=== PATIENT | female | born 1975 | race Caucasian/White ===

== ENCOUNTER 2017-01-17 16:15 | Emergency (ER) | payer MEDICARE, MEDICAID ==
[~2017-01-17] VITALS: Ht 167.6 cm; Wt 96.6 kg
[2017-01-17] MEDS ORDERED: GABA-283 PO (16:25)
[2017-01-17] MEDS ORDERED: BUPR10TASR PO (16:25)
[2017-01-17] MEDS ORDERED: NS 1,000 ML IV ONE (16:45)
[2017-01-17] MEDS ORDERED: MORPHINE 4 MG/ML 1ML SYRINGE IV PRN (16:45)
[2017-01-17] MEDS ORDERED: ONDANSETRON 4MG/2ML VIAL (J2405) IV ONE (16:45)
[2017-01-17 17:06] LABS: BASO % 0.3 % (0.0-1.0); EOS # 0.2 K/mm3 (0.0-0.50); EOS % 1.3 % (0.0-3.0); LARGE UNSTAINED CELL # 0.1 K/mm3 (0.0-0.4); LARGE UNSTAINED CELL % 0.5 % (0.0-4.0); LYMPH # 1.8 K/mm3 (1.5-4.5); LYMPH % 8.7 % (24.0-44.0); MEAN CORPUSCULAR HEMOGLOBIN 31.4 pg (27.0-33.0); MEAN CORPUSCULAR HGB CONC 34.5 g/dl (32.0-36.5); MEAN CORPUSCULAR VOLUME 91.2 fl (80.0-96.0); MONO # 0.7 K/mm3 (0.0-0.8); MONO % 3.6 % (0.0-5.0); NEUTROPHILS # 16.5 K/mm3 (1.8-7.7); NEUTROPHILS % 85.7 % (36.0-66.0); PLATELET COUNT, AUTOMATED 403 k/mm3 (150-450); RED CELL DISTRIBUTION WIDTH 13.3 % (11.5-14.5); WHITE BLOOD COUNT 19.2 K/mm3 (4.0-10.0)
[2017-01-17 17:15] LABS: INR 0.92
[2017-01-17 17:37] LABS: ALBUMIN 3.2 GM/DL (3.2-5.2); ALBUMIN/GLOBULIN RATIO 0.94 (1.00-1.93); ALKALINE PHOSPHATASE 100 U/L (45-117); ALT/SGPT 36 U/L (12-78); ANION GAP 9 MEQ/L (8-16); AST/SGOT 16 U/L (15-37); BILIRUBIN,DIRECT < 0.1 MG/DL (0.0-0.2); BILIRUBIN,TOTAL 0.2 MG/DL (0.2-1.0); BLOOD UREA NITROGEN 11 MG/DL (7-18); CALCIUM LEVEL 8.3 MG/DL (8.5-10.1); CARBON DIOXIDE LEVEL 23 MEQ/L (21-32); CHLORIDE LEVEL 104 MEQ/L (98-107); CREATININE FOR GFR 0.79 MG/DL (0.55-1.02); GLOMERULAR FILTRATION RATE > 60.0 (>58); GLUCOSE, FASTING 119 MG/DL (70-105); POTASSIUM SERUM 4.7 MEQ/L (3.5-5.1); SODIUM LEVEL 136 MEQ/L (136-145); TOTAL PROTEIN 6.6 GM/DL (6.4-8.2)
[2017-01-17] MEDS ORDERED: ISOVUE-370 76% 100ML VIAL (Q9967) As Ordered ONE (17:39)
[2017-01-17] MEDS ORDERED: KETOROLAC 30 MG/ML VIAL (J1885) IV ONE (18:45)
[2017-01-17] MEDS ORDERED: BUDE3CAP PO (19:04)
--- NOTE | 2017-01-17 19:16 | REP ---
CT ABDOMEN PELVIS WITH IV CONTRAST ONLY: 01/17/2017: Comparison: Abdominal x-rays 05/30/2015. Clinical history: Left lower quadrant abdominal pain. Prior hysterectomy. Renal stone disease. Technique: Scanning through the abdomen pelvis after a bolus of 100 mL Isovue-370. Coronal and sagittal reconstructions are provided. Bone windows also reviewed. CT abdomen: The lung bases are clear. Heart not enlarged and no pericardial thickening or effusion. No hiatal hernia. I see no hepatosplenomegaly, focal hepatic or splenic mass nor intrahepatic biliary dilatation. Clips from prior cholecystectomy are noted. Pancreas was unremarkable. Adrenal glands are normal. Kidneys show lobation without mass, cyst, stone or hydronephrosis. No perinephric fluid. Small bowel loops and colon in the abdomen proper were unremarkable. Appendix is seen and normal. Small bowel loops show no dilatation. The aorta is without aneurysm. No periaortic or mesenteric pathologic sized adenopathy. Lung window review shows no free air in the abdomen or pelvis. Sagittal reconstructions show vertebral body heights in the lumbar and lower thoracic spine intact without disc space narrowing. There is no spondylolysis or spondylolisthesis. Minimal hypertrophic facet changes lower lumbar spine. Visualized ribs are grossly intact. Abdominal aorta without aneurysm or dissection. CT Pelvis: The bony hips appeared symmetric with a bone island in the apophysis of the femoral head on each side. The acetabulum shows no sclerotic or destructive lesion. There is no subchondral cyst. Small peripheral spurs of the femoral heads are noted. The ischium, acetabuli and iliac bones without fracture, destructive lesion. SI joints and sacrum unremarkable. Bladder is nearly empty and no significant findings are possible. The uterus is not present and its vaginal cuff intact. Small bowel loops in the deep pelvis as well as the distal left colon and sigmoid show collapse and findings suggesting some proctosigmoiditis thickening of the bowel wall from the distal left colon through the rectosigmoid with some edema adjacent to a minimal degree. No ventral or inguinal hernia nor pathologic sized inguinal adenopathy . Impression: 1. 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 No definite signs of diverticulitis. 2. Small bowel loops grossly intact. 3. Liver, spleen, pancreas, adrenal glands, kidneys, otherwise intact and unremarkable. Gallbladder is absent. No ascites. No adenopathy. Signed by Russ Segura MD 01/17/2017 08:18 P
[2017-01-17 19:18] VITALS: BP 128/62
--- NOTE | 2017-01-18 08:50 | ED PDOC ---
Post-Departure Follow-Up radiology report faxed to Lydia Castellanos MD Jan 18, 2017 08:50
== END 2017-01-17 19:21 | disposition home or self-care (01) ==
LOC: M ED 17:37
DX: R19.7 Diarrhea, unspecified (principal); K63.89 Other specified diseases of intestine; Z86.19 Personal history of other infectious and parasitic diseases; K58.9 Irritable bowel syndrome, unspecified; F17.200 Nicotine dependence, unspecified, uncomplicated
CPT/HCPCS: 36415; 74177; 80048; 80076; 81001; 82270; 83605; 83690; 85025; 85610; 85730; 87507; 96374; 96375; 99283; J1885; J2405; Q9967

== ENCOUNTER → 2017-01-17 | Outpatient (REF) | payer MEDICARE, MEDICAID, OTHER ==
[~2017-01-17] MED LIST: BUDE3CAP PO; BUPR10TASR PO; GABA-283 PO
== END ==
LOC: M SFHCLERA 16:24
PROVIDERS: ATTEND Family Medicine
DX: R19.7 Diarrhea, unspecified (principal)

== ENCOUNTER → 2017-01-24 | Outpatient (REF) | payer MEDICARE, MEDICAID ==
[2017-01-24 17:44] LABS: BASO % 0.4 % (0.0-1.0); EOS # 0.2 K/mm3 (0.0-0.50); EOS % 1.8 % (0.0-3.0); LARGE UNSTAINED CELL # 0.1 K/mm3 (0.0-0.4); LARGE UNSTAINED CELL % 1.2 % (0.0-4.0); LYMPH % 28.5 % (24.0-44.0); MEAN CORPUSCULAR HEMOGLOBIN 32.1 pg (27.0-33.0); MEAN CORPUSCULAR HGB CONC 34.9 g/dl (32.0-36.5); MONO # 0.5 K/mm3 (0.0-0.8); MONO % 4.6 % (0.0-5.0); NEUTROPHILS # 6.7 K/mm3 (1.8-7.7); NEUTROPHILS % 63.5 % (36.0-66.0); PLATELET COUNT, AUTOMATED 339 k/mm3 (150-450); WHITE BLOOD COUNT 10.6 K/mm3 (4.0-10.0)
== END ==
LOC: M SFHCLERA 13:41
PROVIDERS: ATTEND Family Medicine
DX: K92.2 Gastrointestinal hemorrhage, unspecified (principal)

== ENCOUNTER → 2017-03-13 | Outpatient (REF) | payer MEDICARE ==
[2017-03-13 18:00] LABS: MEAN CORPUSCULAR HGB CONC 35.9 g/dl (32.0-36.5); RED CELL DISTRIBUTION WIDTH 13.5 % (11.5-14.5); WHITE BLOOD COUNT 11.6 K/mm3 (4.0-10.0)
== END ==
LOC: M SFHCLERA 15:02
PROVIDERS: ATTEND Family Medicine
DX: K51.911 Ulcerative colitis, unspecified with rectal bleeding (principal)

== ENCOUNTER → 2017-03-26 | Outpatient (REF) | payer MEDICARE ==
[2017-03-26 12:30] LABS: BASO % 0.3 % (0.0-1.0); EOS # 0.1 K/mm3 (0.0-0.50); EOS % 1.2 % (0.0-3.0); LARGE UNSTAINED CELL # 0.1 K/mm3 (0.0-0.4); LYMPH # 2.6 K/mm3 (1.5-4.5); LYMPH % 22.7 % (24.0-44.0); MEAN CORPUSCULAR VOLUME 91.3 fl (80.0-96.0); MONO # 0.5 K/mm3 (0.0-0.8); MONO % 4.5 % (0.0-5.0); NEUTROPHILS # 7.8 K/mm3 (1.8-7.7); NEUTROPHILS % 70.4 % (36.0-66.0); PLATELET COUNT, AUTOMATED 305 k/mm3 (150-450); RED CELL DISTRIBUTION WIDTH 13.2 % (11.5-14.5)
[2017-03-26 14:40] LABS: BLOOD UREA NITROGEN 10 MG/DL (7-18); CHLORIDE LEVEL 104 MEQ/L (98-107); CREATININE FOR GFR 0.73 MG/DL (0.55-1.02); GLOMERULAR FILTRATION RATE > 60.0 (>58); GLUCOSE, FASTING 86 MG/DL (70-105); POTASSIUM SERUM 4.3 MEQ/L (3.5-5.1); SODIUM LEVEL 138 MEQ/L (136-145)
[2017-03-26 14:41] LABS: ALBUMIN 3.4 GM/DL (3.2-5.2); ALKALINE PHOSPHATASE 78 U/L (45-117); ALT/SGPT 42 U/L (12-78); ANION GAP 9 MEQ/L (8-16); AST/SGOT 19 U/L (15-37); BILIRUBIN,TOTAL 0.3 MG/DL (0.2-1.0); CARBON DIOXIDE LEVEL 25 MEQ/L (21-32); TOTAL PROTEIN 6.5 GM/DL (6.4-8.2)
[2017-03-26 15:36] LABS: IMMUNOGLOBULIN G 883 MG/DL (681-1648); IMMUNOGLOBULIN M 108 MG/DL (40-230)
== END ==
LOC: M SFHCPLAZ 11:36
PROVIDERS: ATTEND Internal Medicine Infectious Disease
DX: A04.7 Enterocolitis due to Clostridium difficile (principal); Z72.0 Tobacco use; F34.1 Dysthymic disorder; K21.9 Gastro-esophageal reflux disease without esophagitis
CPT/HCPCS: 80053; 82784; 85025; 87899; G0463

== ENCOUNTER → 2017-07-03 | Outpatient (REF) | payer MEDICARE, MEDICAID ==
[~2017-07-03] MED LIST changes: +CHOL4POW PO; +GABA-282 PO; +LEXA1TAB PO; +NAPR500T3 PO
== END ==
LOC: M LAB REF 14:56
PROVIDERS: ATTEND Internal Medicine Gastroenterology
DX: R19.7 Diarrhea, unspecified (principal); A04.7 Enterocolitis due to Clostridium difficile

== ENCOUNTER → 2017-07-03 | Outpatient (REF) | payer MEDICARE, MEDICAID | LOC: M SFHCPLAZ 13:45 | PROVIDERS: ATTEND Internal Medicine Infectious Disease | DX: A04.7 Enterocolitis due to Clostridium difficile (principal) ==

== ENCOUNTER 2017-07-23 13:01 | Outpatient (CLI) | payer MEDICARE, MEDICAID ==
[~2017-07-23] VITALS: Ht 170.2 cm; Wt 91.6 kg
[2017-07-23] MEDS ORDERED: NS 1,000 ML IV ONE (13:30)
[2017-07-23] MEDS ORDERED: PROPOFOL 200 MG/20 ML VIAL As Ordered ONE ×2 (14:33→14:34)
[2017-07-23] MEDS ORDERED: LIDOCAINE 2% INJ 100 MG/5 ML SDV (FOR ANES.) As Ordered ONE (14:34)
--- NOTE | 2017-07-23 14:39 | ROOR ---
Patient Name: Mercedes Vilchis Procedure Date: 07/23/2017 2:17 PM Date of : 1975 Age: 42 Room: [facility] Gender: Female Note Status: Finalized Procedure: Total Colonoscopy to Cecum + Ileoscopy + Bx. Indications: Clinically significant diarrhea of unexplained origin Providers: Jluis De La Rosa MD Referring MD: Shamar Ge Md Requesting Provider: Medicines: Monitored Anesthesia Care Complications: No immediate complications. Procedure: Pre-Anesthesia Assessment: - The heart rate, respiratory rate, oxygen saturations, blood pressure, adequacy of pulmonary ventilation, and response to care were monitored throughout the procedure. The Colonoscope was introduced through the anus and advanced to the terminal ileum. The colonoscopy was performed without difficulty. The patient tolerated the procedure well. The quality of the bowel preparation was good. Findings: The perianal and digital rectal examinations were normal. Non-bleeding internal hemorrhoids were found during retroflexion. The hemorrhoids were small and Grade I (internal hemorrhoids that do not prolapse). No other significant abnormalities were identified in a careful examination of the remainder of the colon. The terminal ileum appeared normal. Biopsies for histology were taken with a cold forceps from the ascending colon, transverse colon and descending colon for evaluation of microscopic colitis. The exam was otherwise without abnormality on direct and retroflexion views. Impression: - Non-bleeding internal hemorrhoids. - The examined portion of the ileum was normal. - The examination was otherwise normal on direct and retroflexion views. - Biopsies were taken with a cold forceps from the ascending colon, transverse colon and descending colon for evaluation of microscopic colitis. - The exam was otherwise normal to the cecum. Recommendation: - Patient has a contact number available for emergencies. The signs and symptoms of potential delayed complications were discussed with the patient. Return to normal activities tomorrow. Written discharge instructions were provided to the patient. - High fiber diet. - Discharge patient to home. - Continue present medications. - Await pathology results. - Telephone GI clinic for pathology results in 1 week. - Check Portal Online for Path Results.([email or web address]) - Repeat colonoscopy in 10 years for screening purposes. - Return to referring physician. - The findings and recommendations were discussed with the patient's family. Jluis De La Rosa MD Jluis De La Rosa MD 07/23/2017 2:39:06 PM This report has been signed electronically. Number of Addenda: 0 Note Initiated On: 07/23/2017 2:17 PM Estimated Blood Loss: Estimated blood loss: none.
[2017-07-23 15:24] VITALS: BP 123/72
== END 2017-07-23 15:22 | disposition home or self-care (01) ==
LOC: M OPP 13:01
PROVIDERS: ATTEND Internal Medicine Gastroenterology
DX: Z09 Encounter for follow-up examination after completed treatment for conditions other than malignant neoplasm (principal); R19.7 Diarrhea, unspecified; A04.71 Enterocolitis due to Clostridium difficile, recurrent; K64.0 First degree hemorrhoids; R23.3 Spontaneous ecchymoses; M54.5 Low back pain; G47.8 Other sleep disorders; F17.210 Nicotine dependence, cigarettes, uncomplicated; Z88.8 Allergy status to other drugs, medicaments and biological substances; Z79.899 Other long term (current) drug therapy

== ENCOUNTER 2017-09-14 08:00 | Observation (INO) | payer MEDICARE, MEDICAID ==
[~2017-09-14] VITALS: Ht 170.2 cm; Wt 94.5 kg
[2017-09-14] MEDS ORDERED: ZANA4TAB PO (08:24)
[2017-09-14] MEDS ORDERED: REME15TA2 PO (08:24)
[2017-09-14 08:25] LABS: BASO % 0.3 % (0.0-1.0); EOS % 0.1 % (0.0-3.0); IMMATURE GRANULOCYTE % 0.5 % (0-0); LYMPH # 1.9 10^3/uL (1.5-4.5); LYMPH % 12.8 % (24.0-44.0); MEAN CORPUSCULAR HEMOGLOBIN 32.1 pg (27.0-33.0); MEAN CORPUSCULAR HGB CONC 34.5 g/dl (32.0-36.5); MONO # 0.8 10^3/uL (0.0-0.8); MONO % 5.1 % (0.0-5.0); NEUTROPHILS # 12.1 10^3/uL (1.8-7.7); NEUTROPHILS % 81.2 % (36.0-66.0); PLATELET COUNT, AUTOMATED 327 10^3/uL (150-450); RED CELL DISTRIBUTION WIDTH 12.9 % (11.5-14.5); WHITE BLOOD COUNT 14.8 10^3/uL (4.0-10.0)
[2017-09-14 08:38] LABS: ALBUMIN 3.3 GM/DL (3.2-5.2); ALBUMIN/GLOBULIN RATIO 1.14 (1.00-1.93); ALKALINE PHOSPHATASE 83 U/L (45-117); ALT/SGPT 37 U/L (12-78); ANION GAP 8 MEQ/L (8-16); AST/SGOT 14 U/L (7-37); BILIRUBIN,DIRECT 0.1 MG/DL (0.0-0.2); BILIRUBIN,TOTAL 0.3 MG/DL (0.2-1.0); BLOOD UREA NITROGEN 5 MG/DL (7-18); CALCIUM LEVEL 8.8 MG/DL (8.5-10.1); CARBON DIOXIDE LEVEL 28 MEQ/L (21-32); CHLORIDE LEVEL 103 MEQ/L (98-107); CREATININE FOR GFR 0.84 MG/DL (0.55-1.02); GLOMERULAR FILTRATION RATE > 60.0 (>58); GLUCOSE, FASTING 167 MG/DL (70-105); SODIUM LEVEL 139 MEQ/L (136-145); TOTAL PROTEIN 6.2 GM/DL (6.4-8.2)
--- NOTE | 2017-09-14 08:57 | REP ---
Clinical: Drug overdose . Comparison: None . Findings: The mediastinum and cardiac silhouette are stable and within normal limits for portable technique. The lung beatty are clear without acute consolidation, effusion, or pneumothorax. Skeletal structures are intact. Impression: No acute cardiopulmonary process appreciated. Signed by Neeraj Aguirre MD 09/14/2017 08:49 A
[2017-09-14 09:33] LABS: METHADONE URINE NEGATIVE (NEGATIVE)
[2017-09-14] MEDS ORDERED: BUPR150T3 PO (10:01)
[2017-09-14] MEDS ORDERED: KETO2SH TOP (10:01)
--- NOTE | 2017-09-14 11:05 | HPEPDOC ---
General Date of Admission Sep 14, 2017 at 09:36 Chief Complaint The patient is a 42-year-old female admitted with a reason for visit of Drug Overdose. Source: Patient Exam Limitations: Intoxication Timing/Duration: 24 hours Severity: Moderate, Severe Associated Symptoms: Denies Symptoms History of Present Illness 42 yo female for intentional drug overdose. Patient is currently intoxicated and a poor historian. Her mentation waxes and wanes. During her more lucid periods she states she was very upset with her boyfriend. It is not clear what she medications were taken in overdose, although she states it was possibly Wellbutrin and Tizanidine. She denies any medical complaints during examination. Home Medications Scheduled Bupropion Hcl (Bupropion HCl Xl) 150 Mg Tab, 150 MG PO DAILY, (Reported) Escitalopram Oxalate (Lexapro) 10 Mg Tab, 10 MG PO DAILY, (Reported) Ketoconazole (Ketoconazole) 1 Dose/120 Ml Sham, 1 DOSE TOP QHS, (Reported) Scheduled PRN Tizanidine Hydrochloride (Zanaflex) 4 Mg Tab, 1 TAB PO QHSP PRN for MUSCLE SPASMS, (Reported) Allergies Coded Allergies: Unclassified Drugs (Verified Adverse Reaction, Intermediate, ALL ANTIBIOTICS CAUSE C DIFF, 07/18/17) Past Medical History Medical History History of C.Dif colitis, with recurrent colitis, s/p fecal transplant Tension headaches. Dysthymic disorder DDD, lumbosacral Insomnia Seasonal allergies Tendonitis, left shoulder Episcleritis, OU Cervicalgia IBS with diarrhea Ulcerative colitis Seborrheic dermatitis of the scalp Social History * Smoker: current smoker Alcohol: other Drugs: denies Review of Symptoms Constitutional: Denies: Chills, Fever, Malaise, Night Sweats, Weakness, Fatigue , Weight Loss, Lethargy, Other Eyes: Denies: Pain, Vision change, Conjunctivae inflammation, Eyelid inflammation, Redness, Other ENT: Denies: Head Aches, Ear Pain, Dysphagia, Sinus Congestion, Post Nasal Drip , Sore Throat, Epistaxis, Other Symptoms Skin: Denies: Rash, Lesions, Jaundice, Bruising, Itching, Dry, Breakdown, Nail Changes, Other Pulmonary: Denies: Dyspnea, Cough, Pleuritic Chest Pain, Other Symptoms Cardiovascular: Denies: Chest Pain, Palpitations, Orthopnea, Paroxysmal Noc. Dyspnea, Edema, Lt Headedness, Other Symptoms Gastrointestinal: Denies: Nausea, Vomiting, Abdominal Pain, Diarrhea, Constipation, Melena, Hematochezia, Other Symptoms Genitourinary: Denies: Dysuria, Frequency, Incontinence, Hematuria, Retention, Other Symptoms Hematologic: Denies: Bruising, Bleeding Excessively, Petecchia, Purpura, Enlarged Lymph Nodes, Other Hematologic Endocrine: Denies: Polydipsia, Polyphagia, Polyuria, Heat Intolerance, Cold Intolerance, Other Endocrine Sx Musculoskeletal: Denies: Neck Pain, Back Pain, Shoulder Pain, Arm Pain, Hand Pain, Leg Pain, Foot Pain, Joint Pain, Muscle Pain, Spasms, Other Symptoms Psych: Reports: Other Psych (States she feels 'high') Physical Examination General Exam: Positive: Cooperative, Negative: Alert, No Acute Distress Eye Exam: Positive: EOMI, Negative: Conjunctiva & lids normal, Sclera icteric ENT Exam: Positive: Atraumatic, Mucous membr. moist/pink, Tongue Midline Neck Exam: Positive: Supple Chest Exam: Positive: Clear to auscultation, Normal air movement Heart Exam: Positive: Rate Normal, Regular Rhythm, Normal S1, Normal S2 Telemetry: Positive: No significant arrhythmia Abdomen Exam: Positive: Normal bowel sounds, Soft, Negative: Tenderness Extremity Exam: Negative: Edema Skin Exam: Positive: Nl turgor and temperature Psych Exam: Positive: Oriented x 3 Vital Signs Vital Signs Date Time Temp Pulse Resp B/P (MAP) Pulse Ox O2 Delivery O2 Flow Rate FiO2 09/14/17 08:47 09/14/17 08:45 81 16 99 Room Air 09/14/17 08:20 97.8 Laboratory Data Labs 24H Laboratory Tests 2 09/14/17 08:11: Immature Granulocyte % (Auto) 0.5H, White Blood Count 14.8H, Red Blood Count 5.01, Hemoglobin 16.1H, Hematocrit 46.6, Mean Corpuscular Volume 93.0, Mean Corpuscular Hemoglobin 32.1, Mean Corpuscular Hemoglobin Concent 34.5, Red Cell Distribution Width 12.9, Platelet Count 327, Neutrophils (%) (Auto) 81.2H, Lymphocytes (%) (Auto) 12.8L, Monocytes (%) (Auto) 5.1H, Eosinophils (%) (Auto) 0.1, Basophils (%) (Auto) 0.3, Neutrophils # (Auto) 12.1H, Lymphocytes # (Auto) 1.9, Monocytes # (Auto) 0.8, Eosinophils # (Auto) 0.0, Basophils # (Auto) 0.0, Immature Granulocyte # (Auto) 0.1H, Nucleated Red Blood Cells % (auto) 0.0, Anion Gap 8, Glomerular Filtration Rate > 60.0, Calcium Level 8.8, Aspartate Amino Transf (AST/SGOT) 14, Alanine Aminotransferase (ALT/SGPT) 37, Alkaline Phosphatase 83, Total Bilirubin 0.3, Direct Bilirubin 0.1, Total Creatine Kinase 199H, Total Protein 6.2L, Albumin 3.3, Albumin/Globulin Ratio 1.14, Thyroid Stimulating Hormone (TSH) 3.170, Salicylates Level 2.1L, Acetaminophen Level < 2.0L, Ethyl Alcohol Level < 0.003 09/14/17 09:08: Urine Amphetamines Screen NEGATIVE, Urine Benzodiazepines Screen NEGATIVE, Urine Opiates Screen POSITIVEH, Urine Methadone Screen NEGATIVE, Urine Barbiturates Screen NEGATIVE, Urine Phencyclidine Screen NEGATIVE, Urine Cocaine Metabolite Screen NEGATIVE, Urine Cannabinoids Screen NEGATIVE CBC/BMP Laboratory Tests 09/14/17 08:11 Red Blood Count 5.01, Mean Corpuscular Volume 93.0, Mean Corpuscular Hemoglobin 32.1, Mean Corpuscular Hemoglobin Concent 34.5, Red Cell Distribution Width 12.9 , Neutrophils (%) (Auto) 81.2 H, Lymphocytes (%) (Auto) 12.8 L, Monocytes (%) ( Auto) 5.1 H, Eosinophils (%) (Auto) 0.1, Basophils (%) (Auto) 0.3, Neutrophils # (Auto) 12.1 H, Lymphocytes # (Auto) 1.9, Monocytes # (Auto) 0.8, Eosinophils # (Auto) 0.0, Basophils # (Auto) 0.0 Problems (1) Drug overdose Status: Acute Response to Treatment: Progressing Discussed With: Patient Problem Specific Plan: Monitor Clinically, Repeat Labs Problem Text: Intentional drug OD - suicide attempt. Monitor in ICU. IV fluids. Suicide precautions. Psych c/s when medically stable. Plan / VTE VTE Prophylaxis Ordered?: Yes Plan Plan Admit to ICU for observation. IV fluids. Repeat EKG in am. Neuro checks. Seizure precautions. Suicide precautions. IVF: Initiate Diet: Continue Current Activity: Continue Current Diagnostics: Repeat Labs in AM, Repeat EKG Anticipated Discharge: Psych ARGELIA ALFRED MD Sep 14, 2017 11:05
[2017-09-14] MEDS ORDERED: ENOXAPARIN 60 MG/0.6 ML SYR (J1650) As Ordered ONE (11:58)
[2017-09-14] MEDS: NS 1,000 ML IV SCH ×2 (13:42→21:15)
[2017-09-14] MEDS: ENOXAPARIN 40 MG/0.4 ML SYRINGE (J1650) SC SCH (13:42)
[2017-09-14 16:00] VITALS: BP 137/65
[2017-09-14 17:00] VITALS: BP 128/72
[2017-09-14 18:00] VITALS: BP 122/65
[2017-09-14 19:00] VITALS: BP 174/98
[2017-09-14 20:00] VITALS: BP 160/70
[2017-09-15] VITALS (7 sets, daily range): BP systolic 115–148; BP diastolic 58–78
[2017-09-15] MEDS ORDERED: ACETAMINOPHEN TAB 650MG DOSE (2X325MG) PO ONE (04:15)
[2017-09-15 05:11] LABS: BASO # 0.1 10^3/uL (0.0-0.2); BASO % 0.5 % (0.0-1.0); EOS # 0.1 10^3/uL (0.0-0.50); EOS % 1.2 % (0.0-3.0); IMMATURE GRANULOCYTE % 0.3 % (0-0); LYMPH # 4.4 10^3/uL (1.5-4.5); LYMPH % 39.5 % (24.0-44.0); MEAN CORPUSCULAR HEMOGLOBIN 32.1 pg (27.0-33.0); MEAN CORPUSCULAR HGB CONC 33.8 g/dl (32.0-36.5); MEAN CORPUSCULAR VOLUME 94.9 fl (80.0-96.0); MONO # 0.8 10^3/uL (0.0-0.8); MONO % 7.5 % (0.0-5.0); NEUTROPHILS # 5.6 10^3/uL (1.8-7.7); PLATELET COUNT, AUTOMATED 296 10^3/uL (150-450); RED CELL DISTRIBUTION WIDTH 13.3 % (11.5-14.5)
[2017-09-15 05:24] LABS: ALBUMIN 2.7 GM/DL (3.2-5.2); ALBUMIN/GLOBULIN RATIO 0.93 (1.00-1.93); ALKALINE PHOSPHATASE 70 U/L (45-117); ALT/SGPT 31 U/L (12-78); ANION GAP 8 MEQ/L (8-16); AST/SGOT 13 U/L (7-37); BILIRUBIN,TOTAL 0.3 MG/DL (0.2-1.0); BLOOD UREA NITROGEN 11 MG/DL (7-18); CALCIUM LEVEL 8.2 MG/DL (8.5-10.1); CARBON DIOXIDE LEVEL 25 MEQ/L (21-32); CHLORIDE LEVEL 110 MEQ/L (98-107); CREATININE FOR GFR 0.91 MG/DL (0.55-1.02); GLOMERULAR FILTRATION RATE > 60.0 (>58); GLUCOSE, FASTING 128 MG/DL (70-105); POTASSIUM SERUM 4.1 MEQ/L (3.5-5.1); SODIUM LEVEL 143 MEQ/L (136-145); TOTAL PROTEIN 5.6 GM/DL (6.4-8.2)
--- NOTE | 2017-09-15 07:18 | IPNPDOC ---
Subjective Date Seen The patient was seen on 09/15/17. Subjective Chief Complaint/HPI The patient is a 42-year-old female admitted with a reason for visit of Drug Overdose. General: Denies: ROS Unobtainable, Chills, Night Sweats, Fatigue, Malaise, Normal Appetite, Other Symptoms Constitutional: Denies: Chills, Fever, Malaise, Night Sweats, Weakness, Fatigue , Weight Loss, Lethargy, Other Eyes: Denies: Pain, Vision change, Conjunctivae inflammation, Eyelid inflammation, Redness, Other ENT: Denies: Head Aches, Ear Pain, Dysphagia, Sinus Congestion, Post Nasal Drip , Sore Throat, Epistaxis, Other Symptoms Skin: Denies: Rash, Lesions, Jaundice, Bruising, Itching, Dry, Breakdown, Nail Changes, Other Pulmonary: Denies: Dyspnea, Cough, Pleuritic Chest Pain, Other Symptoms Cardiovascular: Denies: Chest Pain, Palpitations, Orthopnea, Paroxysmal Noc. Dyspnea, Edema, Lt Headedness, Other Symptoms Gastrointestinal: Denies: Nausea, Vomiting, Abdominal Pain, Diarrhea, Constipation, Melena, Hematochezia, Other Symptoms Genitourinary: Denies: Dysuria, Frequency, Incontinence, Hematuria, Retention, Other Symptoms Hematologic: Denies: Bruising, Bleeding Excessively, Petecchia, Purpura, Enlarged Lymph Nodes, Other Hematologic Endocrine: Denies: Polydipsia, Polyphagia, Polyuria, Heat Intolerance, Cold Intolerance, Other Endocrine Sx Objective Physical Examination General Exam: Positive: Cooperative, No Acute Distress, Negative: Alert Eye Exam: Positive: PERRLA, Conjunctiva & lids normal, EOMI, Negative: Sclera icteric ENT Exam: Positive: Atraumatic, Mucous membr. moist/pink, Tongue Midline Neck Exam: Positive: Supple, Negative: JVD Chest Exam: Positive: Clear to auscultation, Normal air movement Heart Exam: Positive: Rate Normal, Regular Rhythm, Normal S1, Normal S2 Telemetry: Positive: No significant arrhythmia Abdomen Exam: Positive: Normal bowel sounds, Soft, Negative: Tenderness Extremity Exam: Negative: Edema Skin Exam: Positive: Nl turgor and temperature Psych Exam: Positive: Oriented x 3 Assessment /Plan Problems (1) Drug overdose Status: Acute Response to Treatment: Improving Discussed With: Patient Problem Specific Plan: Monitor Clinically, Repeat Labs Problem Text: Intentional drug OD - suicide attempt. Transfer to PCU. Will DC IV fluids Suicide precautions. Psych c/s when medically stable. (2) Fever Status: Acute Response to Treatment: Progressing Discussed With: Patient Problem Specific Plan: Monitor Clinically, Repeat Labs Problem Text: Will check blood cultures/urinalysis. No obvious source of infection. Plan/VTE VTE Prophylaxis Ordered?: Yes Plan IVF: Discontinue Diet: Continue Current Activity: Continue Current Diagnostics: Repeat Labs in AM, Obtain Cultures Anticipated Discharge: Psych Continue to monitor on PCU, if afebrile 24 hours will consult psych. VS, I&O, 24H, Taye Vital Signs/I&O Vital Signs Date Time Temp Pulse Resp B/P (MAP) Pulse Ox O2 Delivery O2 Flow Rate FiO2 09/15/17 04:00 99.3 86 20 138/69 (92) 97 Room Air Laboratory Data 24H LABS Laboratory Tests 2 09/14/17 08:11: Immature Granulocyte % (Auto) 0.5H, White Blood Count 14.8H, Red Blood Count 5.01, Hemoglobin 16.1H, Hematocrit 46.6, Mean Corpuscular Volume 93.0, Mean Corpuscular Hemoglobin 32.1, Mean Corpuscular Hemoglobin Concent 34.5, Red Cell Distribution Width 12.9, Platelet Count 327, Neutrophils (%) (Auto) 81.2H, Lymphocytes (%) (Auto) 12.8L, Monocytes (%) (Auto) 5.1H, Eosinophils (%) (Auto) 0.1, Basophils (%) (Auto) 0.3, Neutrophils # (Auto) 12.1H, Lymphocytes # (Auto) 1.9, Monocytes # (Auto) 0.8, Eosinophils # (Auto) 0.0, Basophils # (Auto) 0.0, Immature Granulocyte # (Auto) 0.1H, Nucleated Red Blood Cells % (auto) 0.0, Anion Gap 8, Glomerular Filtration Rate > 60.0, Calcium Level 8.8, Aspartate Amino Transf (AST/SGOT) 14, Alanine Aminotransferase (ALT/SGPT) 37, Alkaline Phosphatase 83, Total Bilirubin 0.3, Direct Bilirubin 0.1, Total Creatine Kinase 199H, Total Protein 6.2L, Albumin 3.3, Albumin/Globulin Ratio 1.14, Thyroid Stimulating Hormone (TSH) 3.170, Salicylates Level 2.1L, Acetaminophen Level < 2.0L, Ethyl Alcohol Level < 0.003 09/14/17 09:08: Urine Amphetamines Screen NEGATIVE, Urine Benzodiazepines Screen NEGATIVE, Urine Opiates Screen POSITIVEH, Urine Methadone Screen NEGATIVE, Urine Barbiturates Screen NEGATIVE, Urine Phencyclidine Screen NEGATIVE, Urine Cocaine Metabolite Screen NEGATIVE, Urine Cannabinoids Screen NEGATIVE 09/14/17 11:42: 09/15/17 04:41: Immature Granulocyte % (Auto) 0.3H, White Blood Count 11.0H, Red Blood Count 4.33, Hemoglobin 13.9#, Hematocrit 41.1, Mean Corpuscular Volume 94.9, Mean Corpuscular Hemoglobin 32.1, Mean Corpuscular Hemoglobin Concent 33.8, Red Cell Distribution Width 13.3, Platelet Count 296, Neutrophils (%) (Auto) 51.0, Lymphocytes (%) (Auto) 39.5, Monocytes (%) (Auto) 7.5H, Eosinophils (%) (Auto) 1.2, Basophils (%) (Auto) 0.5, Neutrophils # (Auto) 5.6, Lymphocytes # (Auto) 4.4, Monocytes # (Auto) 0.8, Eosinophils # (Auto) 0.1, Basophils # (Auto) 0.1, Immature Granulocyte # (Auto) 0.0, Nucleated Red Blood Cells % (auto) 0.0, Anion Gap 8, Glomerular Filtration Rate > 60.0, Calcium Level 8.2L, Aspartate Amino Transf (AST/SGOT) 13, Alanine Aminotransferase (ALT/SGPT) 31, Alkaline Phosphatase 70, Total Bilirubin 0.3, Total Protein 5.6L, Albumin 2.7L, Albumin/ Globulin Ratio 0.93L, Blood Urea Nitrogen 11#, Creatinine 0.91, Sodium Level 143 , Potassium Level 4.1, Chloride Level 110H, Carbon Dioxide Level 25 CBC/BMP Laboratory Tests 09/14/17 08:11 Red Blood Count 5.01, Mean Corpuscular Volume 93.0, Mean Corpuscular Hemoglobin 32.1, Mean Corpuscular Hemoglobin Concent 34.5, Red Cell Distribution Width 12.9 , Neutrophils (%) (Auto) 81.2 H, Lymphocytes (%) (Auto) 12.8 L, Monocytes (%) ( Auto) 5.1 H, Eosinophils (%) (Auto) 0.1, Basophils (%) (Auto) 0.3, Neutrophils # (Auto) 12.1 H, Lymphocytes # (Auto) 1.9, Monocytes # (Auto) 0.8, Eosinophils # (Auto) 0.0, Basophils # (Auto) 0.0 09/15/17 04:41 Red Blood Count 4.33, Mean Corpuscular Volume 94.9, Mean Corpuscular Hemoglobin 32.1, Mean Corpuscular Hemoglobin Concent 33.8, Red Cell Distribution Width 13.3 , Neutrophils (%) (Auto) 51.0, Lymphocytes (%) (Auto) 39.5, Monocytes (%) (Auto ) 7.5 H, Eosinophils (%) (Auto) 1.2, Basophils (%) (Auto) 0.5, Neutrophils # ( Auto) 5.6, Lymphocytes # (Auto) 4.4, Monocytes # (Auto) 0.8, Eosinophils # (Auto ) 0.1, Basophils # (Auto) 0.1, Calcium Level 8.2 L, Aspartate Amino Transf (AST/ SGOT) 13, Alanine Aminotransferase (ALT/SGPT) 31, Alkaline Phosphatase 70, Total Bilirubin 0.3, Total Protein 5.6 L, Albumin 2.7 L ARGELIA ALFRED MD Sep 15, 2017 07:18
[2017-09-15] MEDS ORDERED: ACETAMINOPHEN TAB 650MG DOSE (2X325MG) PO PRN (08:30)
--- NOTE | 2017-09-15 09:01 | ECGEPIP ---
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
[2017-09-15] MEDS: ESCITALOPRAM OXALATE 10 MG TAB (LEXAPRO) PO SCH (09:13)
[2017-09-15] MEDS: buPROPion **XL** TABLET 150MG (WELLBUTRIN XL) PO SCH (09:13)
[2017-09-15] MEDS: ENOXAPARIN 40 MG/0.4 ML SYRINGE (J1650) SC SCH (09:14)
--- NOTE | 2017-09-15 09:53 | ECGEPIP ---
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
[2017-09-15] MEDS: KETOROLAC TROMETHAMINE 10 MG TAB PO SCH (18:07)
[2017-09-16 04:00] VITALS: BP 110/63
[2017-09-16] MEDS: KETOROLAC TROMETHAMINE 10 MG TAB PO SCH ×4 (05:45→18:44)
[2017-09-16 07:42] VITALS: BP 107/60
[2017-09-16 08:07] LABS: BASO # 0.1 10^3/uL (0.0-0.2); BASO % 0.6 % (0.0-1.0); EOS # 0.2 10^3/uL (0.0-0.50); EOS % 2.2 % (0.0-3.0); IMMATURE GRANULOCYTE % 0.4 % (0-0); LYMPH # 3.1 10^3/uL (1.5-4.5); LYMPH % 37.6 % (24.0-44.0); MEAN CORPUSCULAR HEMOGLOBIN 31.7 pg (27.0-33.0); MEAN CORPUSCULAR HGB CONC 34.3 g/dl (32.0-36.5); MEAN CORPUSCULAR VOLUME 92.5 fl (80.0-96.0); MONO # 0.6 10^3/uL (0.0-0.8); MONO % 6.7 % (0.0-5.0); NEUTROPHILS # 4.4 10^3/uL (1.8-7.7); NEUTROPHILS % 52.5 % (36.0-66.0); PLATELET COUNT, AUTOMATED 272 10^3/uL (150-450); RED CELL DISTRIBUTION WIDTH 12.9 % (11.5-14.5); WHITE BLOOD COUNT 8.3 10^3/uL (4.0-10.0)
[2017-09-16] MEDS: buPROPion **XL** TABLET 150MG (WELLBUTRIN XL) PO SCH (08:16)
[2017-09-16] MEDS: ESCITALOPRAM OXALATE 10 MG TAB (LEXAPRO) PO SCH (08:16)
[2017-09-16] MEDS: ENOXAPARIN 40 MG/0.4 ML SYRINGE (J1650) SC SCH (08:17)
[2017-09-16 08:33] LABS: ALBUMIN 2.8 GM/DL (3.2-5.2); ALKALINE PHOSPHATASE 64 U/L (45-117); ALT/SGPT 30 U/L (12-78); ANION GAP 8 MEQ/L (8-16); AST/SGOT 12 U/L (7-37); BILIRUBIN,TOTAL 0.2 MG/DL (0.2-1.0); BLOOD UREA NITROGEN 9 MG/DL (7-18); CALCIUM LEVEL 8.6 MG/DL (8.5-10.1); CARBON DIOXIDE LEVEL 27 MEQ/L (21-32); CHLORIDE LEVEL 107 MEQ/L (98-107); CREATININE FOR GFR 0.79 MG/DL (0.55-1.02); GLOMERULAR FILTRATION RATE > 60.0 (>58); GLUCOSE, FASTING 109 MG/DL (70-105); POTASSIUM SERUM 4.4 MEQ/L (3.5-5.1); SODIUM LEVEL 142 MEQ/L (136-145); TOTAL PROTEIN 5.6 GM/DL (6.4-8.2)
--- NOTE | 2017-09-16 10:38 | DS.PDOC ---
Discharge Summary General Date of Admission Sep 14, 2017 at 09:36 Date of Discharge 09/16/17 Specialist/Consultants Involve: Isabella Rai MD Discharge Summary PROCEDURES PERFORMED DURING STAY: [None]. DISCHARGE DIAGNOSES: 1. Intentional drug overdose/suicide attempt. 2. History of CDif colitis 3. Tension headaches 4. Dysthymic disorder 5. DDD, lumbosacral 6. Insomnia 7. Seasonal allergies 8.Tendonitis, left shoulder 9. Episcleritis, OU 10. Cervicalgia 11. IBS with diarrhea - as per documentation - patient denies 12. Ulcerative colitis - as per documentation - patient denies 13. Seborrheic dermatitis of the scalp COMPLICATIONS/CHIEF COMPLAINT: Drug Overdose. HISTORY OF PRESENT ILLNESS: Patient brought in to ED after intentional drug overdose. HOSPITAL COURSE: Patient admitted to ICU for further observation and monitoring. She stated she was upset with her boyfriend for having another girlfriend, and wanted to . She did spike fevers on hospital day #2, reyes culture thus far unremarkable, with not obvious sign/symptoms of infection. Psychiatry consulted for further evaluation. DISCHARGE MEDICATIONS: Please see below. ALLERGIES: Please see below. PHYSICAL EXAMINATION ON DISCHARGE: VITAL SIGNS: Please see below. GENERAL: lying comfortably in bed, NAD HEENT: NC/AT, EOMI, PERRL NECK: supple CARDIOVASCULAR EXAMINATION: +S1S2, RRR RESPIRATORY EXAMINATION: CTA B/L ABDOMINAL EXAMINATION: soft, NT, +BS EXTREMITIES: no edema NEUROLOGICAL EXAMINATION: no gross focal deficits PSYCHIATRIC EXAMINATION: AAOx3 ACTIVITY: [As tolerated]. DIET: regular diet DISCHARGE PLAN: As per psychiatry, D/C to [facility] DISCHARGE INSTRUCTIONS: 1. Follow up PCP in 3-5 days on discharge from hospital. 2. Further direction as per psychiatry. TIME SPENT ON DISCHARGE: Greater than 30 minutes. Vital Signs/I&Os Vital Signs Date Time Temp Pulse Resp B/P (MAP) Pulse Ox O2 Delivery O2 Flow Rate FiO2 09/16/17 07:42 98.0 69 19 107/60 (76) 99 Room Air I&O- Last 24 Hours up to 6 AM 09/17/17 06:00 Intake Total 0 ml Output Total 0 ml Balance 0 ml Laboratory Data Labs 24H Laboratory Tests 2 09/16/17 07:43: Immature Granulocyte % (Auto) 0.4H, White Blood Count 8.3, Red Blood Count 4.51 , Hemoglobin 14.3, Hematocrit 41.7, Mean Corpuscular Volume 92.5, Mean Corpuscular Hemoglobin 31.7, Mean Corpuscular Hemoglobin Concent 34.3, Red Cell Distribution Width 12.9, Platelet Count 272, Neutrophils (%) (Auto) 52.5, Lymphocytes (%) (Auto) 37.6, Monocytes (%) (Auto) 6.7H, Eosinophils (%) (Auto) 2.2, Basophils (%) (Auto) 0.6, Neutrophils # (Auto) 4.4, Lymphocytes # (Auto) 3.1, Monocytes # (Auto) 0.6, Eosinophils # (Auto) 0.2, Basophils # (Auto) 0.1, Immature Granulocyte # (Auto) 0.0, Nucleated Red Blood Cells % (auto) 0.0, Anion Gap 8, Glomerular Filtration Rate > 60.0, Blood Urea Nitrogen 9, Creatinine 0.79, Sodium Level 142, Potassium Level 4.4, Chloride Level 107, Carbon Dioxide Level 27, Calcium Level 8.6, Aspartate Amino Transf (AST/SGOT) 12 , Alanine Aminotransferase (ALT/SGPT) 30, Alkaline Phosphatase 64, Total Bilirubin 0.2, Total Protein 5.6L, Albumin 2.8L, Albumin/Globulin Ratio 1.00 CBC/BMP Laboratory Tests 09/16/17 07:43 Red Blood Count 4.51, Mean Corpuscular Volume 92.5, Mean Corpuscular Hemoglobin 31.7, Mean Corpuscular Hemoglobin Concent 34.3, Red Cell Distribution Width 12.9 , Neutrophils (%) (Auto) 52.5, Lymphocytes (%) (Auto) 37.6, Monocytes (%) (Auto ) 6.7 H, Eosinophils (%) (Auto) 2.2, Basophils (%) (Auto) 0.6, Neutrophils # ( Auto) 4.4, Lymphocytes # (Auto) 3.1, Monocytes # (Auto) 0.6, Eosinophils # (Auto ) 0.2, Basophils # (Auto) 0.1, Calcium Level 8.6, Aspartate Amino Transf (AST/ SGOT) 12, Alanine Aminotransferase (ALT/SGPT) 30, Alkaline Phosphatase 64, Total Bilirubin 0.2, Total Protein 5.6 L, Albumin 2.8 L Microbiology Microbiology 09/15/17 Blood Culture - Preliminary, Resulted No growth after 24 hours . All specim... 09/15/17 Blood Culture - Preliminary, Resulted No growth after 24 hours . All specim... 09/15/17 Urine Culture, Received Pending Discharge Medications Scheduled Bupropion Hcl (Bupropion HCl Xl) 150 Mg Tab, 150 MG PO DAILY, (Reported) Escitalopram Oxalate (Lexapro) 10 Mg Tab, 10 MG PO DAILY, (Reported) Ketoconazole (Ketoconazole) 1 Dose/120 Ml Sham, 1 DOSE TOP QHS, (Reported) Allergies Coded Allergies: Unclassified Drugs (Verified Adverse Reaction, Intermediate, ALL ANTIBIOTICS CAUSE C DIFF, 07/18/17) ARGELIA ALFRED MD Sep 16, 2017 10:38
[2017-09-16 12:00] VITALS: BP 113/81
[2017-09-16 14:02] VITALS: BP 146/91
[2017-09-16 20:00] VITALS: BP 151/82
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
== END 2017-09-16 21:30 ==
LOC: M ED 08:00 → EDBD 08:00 → M ED INP 09:36 → M ICU 16:00 → M PCU 09-16 00:19 → M MSPAV 09-16 13:57
PROVIDERS: ADMIT Internal Medicine; ATTEND Internal Medicine
DX: T50.902A Poisoning by unspecified drugs, medicaments and biological substances, intentional self-harm, initial encounter (principal); X58.XXXA Exposure to other specified factors, initial encounter; Y92.89 Other specified places as the place of occurrence of the external cause; F34.1 Dysthymic disorder; F43.25 Adjustment disorder with mixed disturbance of emotions and conduct; Z63.0 Problems in relationship with spouse or partner; R50.9 Fever, unspecified; A04.71 Enterocolitis due to Clostridium difficile, recurrent; G44.209 Tension-type headache, unspecified, not intractable; G47.00 Insomnia, unspecified; M51.37 Other intervertebral disc degeneration, lumbosacral region; J30.2 Other seasonal allergic rhinitis; L21.9 Seborrheic dermatitis, unspecified; H15.103 Unspecified episcleritis, bilateral; M54.2 Cervicalgia; F17.210 Nicotine dependence, cigarettes, uncomplicated; Z79.899 Other long term (current) drug therapy; Z88.1 Allergy status to other antibiotic agents

== ENCOUNTER → 2017-10-22 | Outpatient (REF) | payer MEDICARE, OTHER | LOC: M SFHCLERA 11:21 | DX: A04.71 Enterocolitis due to Clostridium difficile, recurrent (principal) | CPT/HCPCS: 87507 ==

== ENCOUNTER → 2017-11-04 | Outpatient (REF) | payer MEDICARE, MEDICAID ==
[2017-11-04 20:54] LABS: ANION GAP 7 MEQ/L (8-16); BLOOD UREA NITROGEN 10 MG/DL (7-18); CALCIUM LEVEL 9.4 MG/DL (8.5-10.1); CARBON DIOXIDE LEVEL 28 MEQ/L (21-32); CHLORIDE LEVEL 106 MEQ/L (98-107); CREATININE FOR GFR 0.85 MG/DL (0.55-1.02); GLOMERULAR FILTRATION RATE > 60.0 (>58); GLUCOSE, FASTING 89 MG/DL (70-105); POTASSIUM SERUM 4.3 MEQ/L (3.5-5.1); SODIUM LEVEL 141 MEQ/L (136-145)
== END ==
LOC: M SFHCLERA 16:20
DX: R19.7 Diarrhea, unspecified (principal)
CPT/HCPCS: 80048

== ENCOUNTER → 2017-11-20 | Outpatient (REF) | payer MEDICARE, MEDICAID ==
[2017-11-21 11:34] LABS: HEMOGLOBIN 17.1 g/dl (12.0-16.0); MEAN CORPUSCULAR HEMOGLOBIN 32.2 pg (27.0-33.0); MEAN CORPUSCULAR HGB CONC 34.9 g/dl (32.0-36.5); MEAN CORPUSCULAR VOLUME 92.3 fl (80.0-96.0); PLATELET COUNT, AUTOMATED 252 10^3/uL (150-450); RED BLOOD COUNT 5.31 10^6/uL (4.00-5.40); RED CELL DISTRIBUTION WIDTH 12.9 % (11.5-14.5); WHITE BLOOD COUNT 12.1 10^3/uL (4.0-10.0)
[2017-11-21 12:05] LABS: ALBUMIN 3.5 GM/DL (3.2-5.2); ALBUMIN/GLOBULIN RATIO 1.21 (1.00-1.93); ALKALINE PHOSPHATASE 69 U/L (45-117); ALT/SGPT 82 U/L (12-78); ANION GAP 8 MEQ/L (8-16); AST/SGOT 34 U/L (7-37); BILIRUBIN,TOTAL 0.6 MG/DL (0.2-1.0); BLOOD UREA NITROGEN 7 MG/DL (7-18); CALCIUM LEVEL 9.3 MG/DL (8.5-10.1); CARBON DIOXIDE LEVEL 29 MEQ/L (21-32); CHLORIDE LEVEL 105 MEQ/L (98-107); CREATININE FOR GFR 0.72 MG/DL (0.55-1.30); GLOMERULAR FILTRATION RATE > 60.0 (>58); GLUCOSE, FASTING 101 MG/DL (70-100); POTASSIUM SERUM 4.1 MEQ/L (3.5-5.1); SODIUM LEVEL 142 MEQ/L (136-145); THYROID STIMULATING HORMONE 0.595 uIU/ML (0.358-3.740); TOTAL PROTEIN 6.4 GM/DL (6.4-8.2)
[2017-11-25 00:07] LABS: TISSUE TRANSGLUTAMINASE IgA <2 U/mL (0-3)
== END ==
LOC: M SFHCLERA 15:57
DX: K52.9 Noninfective gastroenteritis and colitis, unspecified (principal); Z79.899 Other long term (current) drug therapy
CPT/HCPCS: 84443

== ENCOUNTER → 2017-11-23 | Outpatient (REF) | payer MEDICARE, OTHER | LOC: M SFHCLERA 13:51 | DX: K52.9 Noninfective gastroenteritis and colitis, unspecified (principal) | CPT/HCPCS: 82270 ==

== ENCOUNTER → 2017-12-30 | Outpatient (REF) | payer MEDICARE ==
[2017-12-30 17:58] LABS: CHLAMYDIA DNA AMPLIFICATION NEGATIVE (NEGATIVE); GC DNA AMPLIFICATION NEGATIVE (NEGATIVE)
[2017-12-31 09:33] LABS: HEPATITIS B SURFACE ANTIGEN NEGATIVE (NEGATIVE)
[2017-12-31 09:48] LABS: HIV 1&2 SCREEN CENTAUR NEGATIVE (NEGATIVE)
[2017-12-31 09:48] LABS: HEPATITIS C VIRUS ABY INDEX 0.2 INDEX (<0.8)
== END ==
LOC: M SFHCWAGY 15:21
DX: Z11.3 Encounter for screening for infections with a predominantly sexual mode of transmission (principal); Z79.899 Other long term (current) drug therapy; Z90.711 Acquired absence of uterus with remaining cervical stump
CPT/HCPCS: 87340

== ENCOUNTER → 2018-03-13 | Outpatient (REF) | payer MEDICARE, MEDICAID ==
[2018-03-21 14:10] LABS: HPV HYBRID CAPTURE II Negative (Negative)
== END ==
LOC: M SFHCWAGY 14:47
DX: Z12.4 Encounter for screening for malignant neoplasm of cervix (principal); R87.610 Atypical squamous cells of undetermined significance on cytologic smear of cervix (ASC-US)
CPT/HCPCS: G0123

== ENCOUNTER → 2018-04-28 | Outpatient (CLI) | payer MEDICARE, MEDICAID ==
[2018-04-28 09:05] LABS: BASO % 0.4 % (0.0-1.0); EOS # 0.1 10^3/uL (0.0-0.50); EOS % 0.9 % (0.0-3.0); HEMATOCRIT 45.8 % (36.0-47.0); IMMATURE GRANULOCYTE % 0.4 % (0-3.0); LYMPH # 2.4 10^3/uL (1.5-4.5); LYMPH % 25.3 % (24.0-44.0); MEAN CORPUSCULAR HEMOGLOBIN 32.8 pg (27.0-33.0); MEAN CORPUSCULAR HGB CONC 34.9 g/dl (32.0-36.5); MEAN CORPUSCULAR VOLUME 93.9 fl (80.0-96.0); MONO # 0.6 10^3/uL (0.0-0.8); MONO % 5.7 % (0.0-5.0); NEUTROPHILS # 6.4 10^3/uL (1.8-7.7); NEUTROPHILS % 67.3 % (36.0-66.0); PLATELET COUNT, AUTOMATED 254 10^3/uL (150-450); RED BLOOD COUNT 4.88 10^6/uL (4.00-5.40); RED CELL DISTRIBUTION WIDTH 12.6 % (11.5-14.5); WHITE BLOOD COUNT 9.6 10^3/uL (4.0-10.0)
[2018-04-28 09:31] LABS: C REACTIVE PROTEIN QUANTITATIV 0.32 MG/DL (0.00-0.30); FERRITIN 49 NG/ML (8-252); IRON (FE) 108 UG/DL (50-170); TOTAL IRON BINDING CAPACITY 300 UG/DL (250-450)
[2018-04-28 09:49] LABS: ERYTHROCYTE SEDIMENTATION RATE 3 mm/hr (0-20)
[2018-05-01 00:12] LABS: HEMOGLOBIN A 97.4 % (96.4-98.8); HEMOGLOBIN A2 2.6 % (1.8-3.2); HGB SOLUBILITY Negative (Negative)
== END ==
LOC: M LAB 08:23
DX: R19.7 Diarrhea, unspecified (principal); R10.32 Left lower quadrant pain; Z79.899 Other long term (current) drug therapy
CPT/HCPCS: 83021

== ENCOUNTER → 2018-05-20 | Outpatient (REF) | payer MEDICARE, MEDICAID ==
[2018-05-29 00:08] LABS: CALPROTECTIN STOOL <16 ug/g (0-120); FATS NEUTRAL Normal (.); FATS TOTAL Normal (.); O+P EXAM Final report (.)
== END ==
LOC: M LAB REF 11:13
DX: R19.7 Diarrhea, unspecified (principal); R10.32 Left lower quadrant pain
CPT/HCPCS: 87177

== ENCOUNTER → 2018-06-01 | Outpatient (REF) | payer MEDICARE, MEDICAID | LOC: M SFHCWAGY 14:46 | DX: R87.612 Low grade squamous intraepithelial lesion on cytologic smear of cervix (LGSIL) (principal) | CPT/HCPCS: 88304 ==

== ENCOUNTER 2018-07-02 09:38 | Day surgery (SDC) | payer MEDICARE, MEDICAID ==
[~2018-07-02 09:38] MED LIST changes: -BUDE3CAP PO; -BUPR10TASR PO; -CHOL4POW PO; -GABA-282 PO; -GABA-283 PO; -LEXA1TAB PO; +LIDOCAINE 2% INJ 100 MG/5 ML SDV (FOR ANES.) As Ordered; -NAPR500T3 PO; +PROPOFOL 200 MG/20 ML VIAL As Ordered; +fentaNYL 100 MCG/2 ML INJECTION (J3010) As Ordered
[2018-07-02] MEDS: NS 1,000 ML IV (09:45)
[2018-07-02] MEDS ORDERED: PROPOFOL 200 MG/20 ML VIAL As Ordered (12:36)
[2018-07-02] MEDS ORDERED: ePHEDrine SULFATE 25 MG/5 ML(5MG/ML) SYRINGE As Ordered (12:51)
== END 2018-07-02 13:44 | disposition home or self-care (01) ==
LOC: M OPP 09:38
DX: R63.4 Abnormal weight loss (principal); R19.7 Diarrhea, unspecified; K64.8 Other hemorrhoids; R10.13 Epigastric pain; K31.89 Other diseases of stomach and duodenum; K29.70 Gastritis, unspecified, without bleeding; Z87.19 Personal history of other diseases of the digestive system; M54.89 Other dorsalgia; F41.9 Anxiety disorder, unspecified; F32.9 Major depressive disorder, single episode, unspecified; R51 Headache; Z86.59 Personal history of other mental and behavioral disorders; F17.210 Nicotine dependence, cigarettes, uncomplicated; Z80.1 Family history of malignant neoplasm of trachea, bronchus and lung; Z80.3 Family history of malignant neoplasm of breast; Z80.0 Family history of malignant neoplasm of digestive organs
CPT/HCPCS: 45380

== ENCOUNTER → 2018-07-22 | Outpatient (CLI) | payer MEDICARE, MEDICAID ==
[~2018-07-22] MED LIST changes: -LIDOCAINE 2% INJ 100 MG/5 ML SDV (FOR ANES.) As Ordered; +PROHANCE 279.3MG/ML 15ML VIAL (A9576) As Ordered; -PROPOFOL 200 MG/20 ML VIAL As Ordered; -fentaNYL 100 MCG/2 ML INJECTION (J3010) As Ordered
== END ==
LOC: M RAD 07:09
DX: R19.7 Diarrhea, unspecified (principal); K86.2 Cyst of pancreas
CPT/HCPCS: A9576

== ENCOUNTER → 2018-08-12 | Outpatient (CLI) | payer MEDICARE, MEDICAID ==
[2018-08-12 14:26] LABS: ESTIMATED AVERAGE GLUCOSE 97 MG/DL (60-110)
[2018-08-12 15:21] LABS: LIPASE 95 U/L (73-393)
[2018-08-12 15:21] LABS: AMYLASE 52 U/L (25-115)
[2018-08-12 15:36] LABS: TOTAL 25(OH) VITAMIN D 46.6 NG/ML (30.0-100.0)
[2018-08-13 14:13] LABS: INSULIN LEVEL 11.4 uIU/mL (2.6-24.9)
== END ==
LOC: M LAB 13:08
DX: K86.89 Other specified diseases of pancreas (principal)
CPT/HCPCS: 82150

== ENCOUNTER → 2018-08-31 | Outpatient (CLI) | payer MEDICARE, MEDICAID ==
[2018-08-31 16:46] LABS: BASO % 0.3 % (0.0-1.0); EOS # 0.1 10^3/uL (0.0-0.50); EOS % 0.4 % (0.0-3.0); HEMATOCRIT 45.3 % (36.0-47.0); HEMOGLOBIN 15.9 g/dl (12.0-15.5); IMMATURE GRANULOCYTE % 0.4 % (0-3.0); LYMPH # 3.3 10^3/uL (1.5-4.5); LYMPH % 24.8 % (24.0-44.0); MEAN CORPUSCULAR HEMOGLOBIN 33.2 pg (27.0-33.0); MEAN CORPUSCULAR HGB CONC 35.1 g/dl (32.0-36.5); MEAN CORPUSCULAR VOLUME 94.6 fl (80.0-96.0); MONO # 0.6 10^3/uL (0.0-0.8); MONO % 4.5 % (0.0-5.0); NEUTROPHILS # 9.3 10^3/uL (1.8-7.7); NEUTROPHILS % 69.6 % (36.0-66.0); PLATELET COUNT, AUTOMATED 245 10^3/uL (150-450); RED BLOOD COUNT 4.79 10^6/uL (4.00-5.40); RED CELL DISTRIBUTION WIDTH 12.7 % (11.5-14.5); WHITE BLOOD COUNT 13.3 10^3/uL (4.0-10.0)
[2018-08-31 17:26] LABS: OSMOLALITY SERUM 287 MOSM/KG (275-295); SODIUM,RANDOM URINE 90 MEQ/L
[2018-08-31 17:40] LABS: ALBUMIN 3.5 GM/DL (3.2-5.2); ALBUMIN/GLOBULIN RATIO 1.25 (1.00-1.93); ALKALINE PHOSPHATASE 62 U/L (45-117); ALT/SGPT 20 U/L (12-78); ANION GAP 7 MEQ/L (8-16); AST/SGOT 8 U/L (7-37); BILIRUBIN,DIRECT 0.1 MG/DL (0.0-0.2); BILIRUBIN,TOTAL 0.4 MG/DL (0.2-1.0); BLOOD UREA NITROGEN 11 MG/DL (7-18); CARBON DIOXIDE LEVEL 27 MEQ/L (21-32); CHLORIDE LEVEL 106 MEQ/L (98-107); CREATININE FOR GFR 0.62 MG/DL (0.55-1.30); GLOMERULAR FILTRATION RATE > 60.0 (>58); GLUCOSE, FASTING 87 MG/DL (70-100); SODIUM LEVEL 140 MEQ/L (136-145); TOTAL PROTEIN 6.3 GM/DL (6.4-8.2)
== END ==
LOC: M LAB 15:54
DX: R19.7 Diarrhea, unspecified (principal); R63.4 Abnormal weight loss
CPT/HCPCS: 83930

== ENCOUNTER → 2018-09-03 | Outpatient (REF) | payer MEDICARE, MEDICAID | LOC: M LAB REF 14:59 | DX: R19.7 Diarrhea, unspecified (principal); R63.4 Abnormal weight loss; Z53.8 Procedure and treatment not carried out for other reasons ==

== ENCOUNTER → 2018-09-08 | Outpatient (CLI) | payer MEDICARE, MEDICAID | LOC: M LRY 15:32 | DX: R63.4 Abnormal weight loss (principal); Z23 Encounter for immunization | CPT/HCPCS: 71046; 90471 ==

== ENCOUNTER → 2018-09-08 | Outpatient (REF) | payer MEDICARE, MEDICAID | LOC: M LAB REF 16:26 | DX: R19.7 Diarrhea, unspecified (principal); R63.4 Abnormal weight loss; Z53.8 Procedure and treatment not carried out for other reasons ==

== ENCOUNTER → 2018-09-08 | Outpatient (REF) | payer MEDICARE, MEDICAID | LOC: M SFHCLERA 15:04 | DX: R63.4 Abnormal weight loss (principal); Z53.8 Procedure and treatment not carried out for other reasons ==

== ENCOUNTER → 2018-09-24 | Outpatient (CLI) | payer MEDICARE, MEDICAID | LOC: M LAB 13:30 | DX: R63.4 Abnormal weight loss (principal) ==

== ENCOUNTER → 2018-09-24 | Outpatient (CLI) | payer MEDICARE, MEDICAID ==
[2018-09-24 14:16] LABS: BASO # 0.1 10^3/uL (0.0-0.2); BASO % 0.4 % (0.0-1.0); EOS # 0.1 10^3/uL (0.0-0.50); EOS % 0.5 % (0.0-3.0); HEMATOCRIT 44.5 % (36.0-47.0); HEMOGLOBIN 15.8 g/dl (12.0-15.5); IMMATURE GRANULOCYTE % 0.3 % (0-3.0); LYMPH # 3.8 10^3/uL (1.5-4.5); LYMPH % 23.6 % (24.0-44.0); MEAN CORPUSCULAR HEMOGLOBIN 33.1 pg (27.0-33.0); MEAN CORPUSCULAR HGB CONC 35.5 g/dl (32.0-36.5); MEAN CORPUSCULAR VOLUME 93.1 fl (80.0-96.0); MONO # 0.8 10^3/uL (0.0-0.8); MONO % 4.8 % (0.0-5.0); NEUTROPHILS # 11.4 10^3/uL (1.8-7.7); NEUTROPHILS % 70.4 % (36.0-66.0); PLATELET COUNT, AUTOMATED 279 10^3/uL (150-450); RED BLOOD COUNT 4.78 10^6/uL (4.00-5.40); WHITE BLOOD COUNT 16.2 10^3/uL (4.0-10.0)
[2018-09-24 14:44] LABS: ALBUMIN 3.4 GM/DL (3.2-5.2); ALBUMIN/GLOBULIN RATIO 1.17 (1.00-1.93); ALKALINE PHOSPHATASE 68 U/L (45-117); ALT/SGPT 27 U/L (12-78); ANION GAP 5 MEQ/L (8-16); AST/SGOT 10 U/L (7-37); BILIRUBIN,TOTAL 0.3 MG/DL (0.2-1.0); BLOOD UREA NITROGEN 12 MG/DL (7-18); CALCIUM LEVEL 8.8 MG/DL (8.5-10.1); CARBON DIOXIDE LEVEL 29 MEQ/L (21-32); CHLORIDE LEVEL 106 MEQ/L (98-107); CREATININE FOR GFR 0.67 MG/DL (0.55-1.30); GLOMERULAR FILTRATION RATE > 60.0 (>58); GLUCOSE, FASTING 84 MG/DL (70-100); SODIUM LEVEL 140 MEQ/L (136-145); TOTAL PROTEIN 6.3 GM/DL (6.4-8.2)
== END ==
LOC: M LAB 13:23
DX: R19.7 Diarrhea, unspecified (principal); R63.4 Abnormal weight loss; R10.13 Epigastric pain
CPT/HCPCS: 93005

== ENCOUNTER → 2018-10-26 | Outpatient (REF) | payer MEDICARE, MEDICAID ==
[~2018-10-26] MED LIST changes: +BUDE3CAP PO; +BUPR10TASR PO; +BUPR150T3 PO; +CHOL4POW PO; +GABA-843 PO; +GABA-845 PO; +KETO2SH TOP; +LEXA1TAB PO; +NAPR-885 PO; -PROHANCE 279.3MG/ML 15ML VIAL (A9576) As Ordered; +REME15TA2 PO; +ZANA4TAB PO
== END ==
LOC: M LAB REF 14:36
PROVIDERS: ATTEND Internal Medicine Gastroenterology
DX: R19.7 Diarrhea, unspecified (principal); R63.4 Abnormal weight loss

== ENCOUNTER 2018-12-08 18:09 | Emergency (ER) | payer MEDICARE, MEDICAID ==
[~2018-12-08] VITALS: Ht 165.1 cm; Wt 63.6 kg
[2018-12-08] MEDS ORDERED: TESS100C PO (21:06)
[2018-12-08 21:10] VITALS: BP 107/55
[2018-12-08] MEDS ORDERED: BENZONATATE 100 MG CAP PO ONE (21:15)
== END 2018-12-08 21:16 | disposition home or self-care (01) ==
LOC: M ED 18:09
DX: J06.9 Acute upper respiratory infection, unspecified (principal); R00.0 Tachycardia, unspecified; R05 Cough; Z20.828 Contact with and (suspected) exposure to other viral communicable diseases; F17.200 Nicotine dependence, unspecified, uncomplicated; F41.9 Anxiety disorder, unspecified; F32.9 Major depressive disorder, single episode, unspecified; Z88.1 Allergy status to other antibiotic agents